=== PATIENT | female | born 1950 | race African-American/Black ===

== ENCOUNTER 2022-05-25 14:41 | Inpatient (IN) | payer MEDICARE ==
[~2022-05-25 14:41] MED LIST: Heparin 10,000 UNITS/ 10 ML VIAL ONE
[2022-05-25 15:50] LABS: #Eosinphils 0.1 thou/uL (0.0-0.7); #Lymphocytes 0.9 thou/uL (1.20-3.40); #Monocytes 0.5 thou/uL (0.11-0.59); #Neutrophils 4.8 thou/uL (1.40-6.50); %Basophils 0.3 % (0.0-1.0); %Eosinophils 1.8 % (0.0-10.0); %Lymphocytes 14.8 % (21.0-51.0); %Monocytes 8.3 % (0.0-10.0); %Neutrophils 74.9 % (42.0-75.0); Hemoglobin 10.8 g/dL (12.0-16.0); Mean Corpuscular HGB CONC 32.5 g/dL (32.0-36.0); Mean Corpuscular Hemoglobin 29.6 pg (27.0-31.0); Mean Platelet Volume 9.2 fL (7.4-10.4); Platelet Count 164 10x3/uL (130-400); RBC Distribution Width 12.7 % (11.5-14.5); Red Blood Cell (RBC) Count 3.66 mill/uL (4.20-5.40); White Blood Cell (WBC) Count 6.4 10x3/uL (4.8-10.8)
[2022-05-25 16:22] LABS: ALT (SGPT) Less than 7 U/L (8-55); AST (SGOT) 16 U/L (5-34); Albumin 3.4 g/dL (3.4-4.8); Alkaline Phosphatase 76 U/L (40-110); Anion Gap 19 mmol/L (10-20); BUN (Urea Nitrogen) 65 mg/dL (9.8-20.1); Bilirubin, Total 0.7 mg/dL (0.2-1.2); Calc. Creatinine Clearance 0 mL/min (70-130); Calcium 9.2 mg/dL (7.8-10.44); Carbon Dioxide 14 mmol/L (23-31); Chloride 108 mmol/L (98-107); Estimated GFR 4; Globulin 3.6 g/dL (2.4-3.5); Glucose 92 mg/dL (80-115); Potassium 5.1 mmol/L (3.5-5.1); Sodium 136 mmol/L (136-145)
[2022-05-25] MEDS ORDERED: Nitroglycerin 2% Ointment 1 INCH/1 GM Packet ONE (17:26)
[2022-05-25] MEDS ORDERED: hydrALAZINE 20 MG/ML VIAL ONE (17:30)
[2022-05-25] MEDS ORDERED: Ondansetron PF 4 MG/2 ML Vial IVP PRN (17:38)
[2022-05-25] MEDS ORDERED: Acetaminophen 325 MG TAB ONE (18:42)
[2022-05-25 18:47] LABS: Hep B Core Total Ab Non-Reactive (NonReactive); Hep B Core Total Index 0.14 S/CO (0-0.79)
[2022-05-25 18:48] LABS: HBSAB Concentration Less than 8.00 mIU/mL; Hep B Surf AB Non-Reactive (NonReactive)
[2022-05-25 18:49] LABS: Hep C IgG Ab Non-Reactive (NonReactive); Hep C Index 0.26 S/CO (0-0.79)
[2022-05-25] MEDS: Acetaminophen 325 MG TAB PO PRN (18:53)
[2022-05-25 19:46] LABS: HBSAg Index 0.33 S/CO (0-0.99); Hep B Surf Ag NonReactive S/CO (NonReactive)
[2022-05-26] MEDS: Acetaminophen 325 MG TAB PO PRN (01:18)
[2022-05-26] MEDS: Heparin 5,000 UNITS/ML VIAL SC SCH ×4 (01:19→20:42)
[2022-05-26 05:03] LABS: #Eosinphils 0.1 thou/uL (0.0-0.7); #Lymphocytes 0.8 thou/uL (1.20-3.40); #Monocytes 0.6 thou/uL (0.11-0.59); #Neutrophils 4.2 thou/uL (1.40-6.50); %Basophils 0.4 % (0.0-1.0); %Lymphocytes 14.2 % (21.0-51.0); %Monocytes 9.9 % (0.0-10.0); %Neutrophils 74.4 % (42.0-75.0); Hemoglobin 9.5 g/dL (12.0-16.0); Mean Corpuscular HGB CONC 33.4 g/dL (32.0-36.0); Mean Corpuscular Hemoglobin 30.1 pg (27.0-31.0); Mean Corpuscular Volume 90.2 fl (78.0-98.0); Platelet Count 140 10x3/uL (130-400); RBC Distribution Width 12.7 % (11.5-14.5); Red Blood Cell (RBC) Count 3.16 mill/uL (4.20-5.40); White Blood Cell (WBC) Count 5.7 10x3/uL (4.8-10.8)
[2022-05-26 05:16] LABS: Albumin 2.9 g/dL (3.4-4.8); Phosphorus 4.6 mg/dL (2.3-4.7)
[2022-05-26 05:22] LABS: Anion Gap 16 mmol/L (10-20); BUN (Urea Nitrogen) 42 mg/dL (9.8-20.1); Calc. Creatinine Clearance 8 mL/min (70-130); Calcium 8.6 mg/dL (7.8-10.44); Carbon Dioxide 19 mmol/L (23-31); Chloride 105 mmol/L (98-107); Estimated GFR 6; Glucose 82 mg/dL (80-115); Magnesium 1.7 mg/dL (1.6-2.6); Sodium 136 mmol/L (136-145)
[2022-05-26] MEDS ORDERED: Heparin 10,000 UNITS/ 10 ML VIAL ONE (08:57)
[2022-05-26] MEDS ORDERED: Hydrochlorothiazide 25 MG TAB PO SCH (09:00)
[2022-05-26] MEDS ORDERED: Non-Formulary Item 1 EACH (Hydrochlorothiazide [Hydrochlorothiazide] 50 MG Tablet) PO SCH (09:00)
[2022-05-26] MEDS ORDERED: Epoetin (ESRD) 20,000 UNITS/ML IVP SCH (09:30)
[2022-05-26] MEDS ORDERED: Tuberculin PPD 0.1 ML VIAL I-DERMAL SCH (09:30)
[2022-05-26] MEDS: Carvedilol 25 MG TAB PO SCH ×2 (09:57→20:42)
[2022-05-26] MEDS: Atorvastatin Calcium 40 MG TAB PO SCH (09:57)
[2022-05-26] MEDS: NIFEdipine XL 60 MG TAB PO SCH (16:54)
[2022-05-26] MEDS: EPOETIN ALFA-EPBX (ESRD) 10,000 UNIT/ML VIAL IVP SCH (16:55)
[2022-05-26] MEDS ORDERED: GUAIFENESIN SF SOLN 200 MG/10 ML UDCUP PO PRN (20:50)
[2022-05-26] MEDS: Benzonatate 100 MG CAP PO PRN (21:55)
[2022-05-27 04:43] LABS: #Basophils 0.1 thou/uL (0.0-0.2); #Lymphocytes 1.9 thou/uL (1.20-3.40); #Monocytes 0.8 thou/uL (0.11-0.59); #Neutrophils 3.2 thou/uL (1.40-6.50); %Basophils 0.9 % (0.0-1.0); %Eosinophils 0.7 % (0.0-10.0); %Lymphocytes 31.4 % (21.0-51.0); Hemoglobin 9.3 g/dL (12.0-16.0); Mean Corpuscular HGB CONC 33.3 g/dL (32.0-36.0); Mean Corpuscular Hemoglobin 30.1 pg (27.0-31.0); Mean Corpuscular Volume 90.4 fl (78.0-98.0); Mean Platelet Volume 9.1 fL (7.4-10.4); Platelet Count 122 10x3/uL (130-400); RBC Distribution Width 12.8 % (11.5-14.5); Red Blood Cell (RBC) Count 3.08 mill/uL (4.20-5.40)
[2022-05-27 05:04] LABS: ALT (SGPT) 7 U/L (8-55); AST (SGOT) 16 U/L (5-34); Albumin 2.4 g/dL (3.4-4.8); Alkaline Phosphatase 52 U/L (40-110); Anion Gap 11 mmol/L (10-20); BUN (Urea Nitrogen) 20 mg/dL (9.8-20.1); Bilirubin, Total 0.4 mg/dL (0.2-1.2); Calc. Creatinine Clearance 12 mL/min (70-130); Calcium 7.2 mg/dL (7.8-10.44); Carbon Dioxide 23 mmol/L (23-31); Chloride 107 mmol/L (98-107); Estimated GFR 9; Glucose 81 mg/dL (80-115); Magnesium 1.5 mg/dL (1.6-2.6); Phosphorus 3.7 mg/dL (2.3-4.7); Potassium 3.5 mmol/L (3.5-5.1); Protein, Total 5.4 g/dL (5.8-8.1); Sodium 137 mmol/L (136-145)
[2022-05-27] MEDS ORDERED: Magnesium 2 GM/50 ML(in water) 2 GM in Premix Bag 1 BAG IVPB SCH (09:45)
[2022-05-27] MEDS: Atorvastatin Calcium 40 MG TAB PO SCH (10:19)
[2022-05-27] MEDS: Heparin 5,000 UNITS/ML VIAL SC SCH ×3 (10:19→20:53)
[2022-05-27] MEDS: HYDROcodone/Acetaminophen 5/325 mg Tablet PO PRN (11:53)
[2022-05-27] MEDS: Carvedilol 25 MG TAB PO SCH ×2 (13:16→20:55)
[2022-05-27] MEDS: NIFEdipine XL 60 MG TAB PO SCH (13:16)
[2022-05-27] MEDS ORDERED: Loratadine 10 MG TAB PO SCH (13:30)
[2022-05-27] MEDS: Acetaminophen 325 MG TAB PO PRN (20:55)
[2022-05-28] MEDS: Acetaminophen 325 MG TAB PO PRN ×2 (03:54→18:32)
[2022-05-28 05:38] LABS: Anion Gap 17 mmol/L (10-20); BUN (Urea Nitrogen) 36 mg/dL (9.8-20.1); Calc. Creatinine Clearance 7 mL/min (70-130); Calcium 8.3 mg/dL (7.8-10.44); Carbon Dioxide 22 mmol/L (23-31); Chloride 98 mmol/L (98-107); Estimated GFR 5; Glucose 104 mg/dL (80-115); Magnesium 2.3 mg/dL (1.6-2.6); Phosphorus 5.9 mg/dL (2.3-4.7); Sodium 133 mmol/L (136-145)
[2022-05-28] MEDS ORDERED: Heparin 10,000 UNITS/ 10 ML VIAL ONE (09:03)
[2022-05-28] MEDS: Atorvastatin Calcium 40 MG TAB PO SCH (09:26)
[2022-05-28] MEDS: Heparin 5,000 UNITS/ML VIAL SC SCH ×3 (09:26→21:33)
[2022-05-28] MEDS: Carvedilol 25 MG TAB PO SCH ×2 (09:27→21:33)
[2022-05-28] MEDS: NIFEdipine XL 60 MG TAB PO SCH (09:27)
[2022-05-28] MEDS: EPOETIN ALFA-EPBX (ESRD) 10,000 UNIT/ML VIAL IVP SCH (12:06)
[2022-05-28] MEDS: HYDROcodone/Acetaminophen 5/325 mg Tablet PO PRN (14:32)
[2022-05-28] MEDS ORDERED: Activase 2 MG VIAL CATH SCH (17:00)
[2022-05-29] MEDS: HYDROcodone/Acetaminophen 5/325 mg Tablet PO PRN ×2 (03:28→15:46)
[2022-05-29] MEDS: NIFEdipine XL 60 MG TAB PO SCH (10:08)
[2022-05-29] MEDS: Atorvastatin Calcium 40 MG TAB PO SCH (10:08)
[2022-05-29] MEDS: Carvedilol 25 MG TAB PO SCH ×2 (10:08→21:55)
[2022-05-29] MEDS: Heparin 5,000 UNITS/ML VIAL SC SCH ×3 (10:09→21:55)
[2022-05-30 05:15] LABS: #Basophils 0.1 thou/uL (0.0-0.2); #Eosinphils 0.3 thou/uL (0.0-0.7); #Lymphocytes 2.6 thou/uL (1.20-3.40); #Monocytes 0.7 thou/uL (0.11-0.59); #Neutrophils 3.9 thou/uL (1.40-6.50); %Basophils 1.1 % (0.0-1.0); %Eosinophils 3.5 % (0.0-10.0); %Lymphocytes 34.9 % (21.0-51.0); %Monocytes 8.6 % (0.0-10.0); %Neutrophils 51.8 % (42.0-75.0); Hemoglobin 9.6 g/dL (12.0-16.0); Mean Corpuscular HGB CONC 32.7 g/dL (32.0-36.0); Mean Corpuscular Hemoglobin 30.6 pg (27.0-31.0); Mean Corpuscular Volume 93.5 fl (78.0-98.0); Mean Platelet Volume 8.5 fL (7.4-10.4); Platelet Count 178 10x3/uL (130-400); Red Blood Cell (RBC) Count 3.13 mill/uL (4.20-5.40); White Blood Cell (WBC) Count 7.5 10x3/uL (4.8-10.8)
[2022-05-30 06:16] LABS: Anion Gap 14 mmol/L (10-20); BUN (Urea Nitrogen) 26 mg/dL (9.8-20.1); Calc. Creatinine Clearance 8 mL/min (70-130); Calcium 8.3 mg/dL (7.8-10.44); Carbon Dioxide 25 mmol/L (23-31); Chloride 101 mmol/L (98-107); Estimated GFR 6; Glucose 72 mg/dL (80-115); Potassium 4.2 mmol/L (3.5-5.1); Sodium 136 mmol/L (136-145)
[2022-05-30] MEDS: HYDROcodone/Acetaminophen 5/325 mg Tablet PO PRN ×2 (09:07→19:45)
[2022-05-30] MEDS: Atorvastatin Calcium 40 MG TAB PO SCH (09:07)
[2022-05-30] MEDS: Carvedilol 25 MG TAB PO SCH ×2 (09:09→19:46)
[2022-05-30] MEDS: NIFEdipine XL 60 MG TAB PO SCH (09:09)
[2022-05-30] MEDS: Heparin 5,000 UNITS/ML VIAL SC SCH ×3 (09:11→19:44)
[2022-05-30] MEDS ORDERED: Bisacodyl 5 MG TAB PO PRN (20:07)
[2022-05-30] MEDS ORDERED: Senokot S 8.6-50 MG TAB PO PRN (20:07)
[2022-05-30] MEDS ORDERED: Polyethylene Glycol 3350 17 GM Packet PO SCH (20:15)
[2022-05-31 05:44] LABS: Anion Gap 15 mmol/L (10-20); BUN (Urea Nitrogen) 35 mg/dL (9.8-20.1); Calc. Creatinine Clearance 6 mL/min (70-130); Calcium 8.5 mg/dL (7.8-10.44); Carbon Dioxide 25 mmol/L (23-31); Chloride 98 mmol/L (98-107); Estimated GFR 4; Glucose 89 mg/dL (80-115); Potassium 4.7 mmol/L (3.5-5.1); Sodium 133 mmol/L (136-145)
[2022-05-31] MEDS: Heparin 5,000 UNITS/ML VIAL SC SCH ×3 (09:59→20:20)
[2022-05-31] MEDS ORDERED: Heparin 10,000 UNITS/ 10 ML VIAL ONE ×2 (10:06→10:55)
[2022-05-31] MEDS: Polyethylene Glycol 3350 17 GM Packet PO SCH (10:09)
[2022-05-31] MEDS ORDERED: Propofol 500 MG/50 ML VIAL ONE (10:43)
[2022-05-31] MEDS ORDERED: fentaNYL PF 100 MCG/2 ML SYRINGE ONE (10:43)
[2022-05-31] MEDS ORDERED: Bupivacaine HCl 0.5%/Epinephrine 1:200,000/PF 30 ml Vial ONE (10:55)
[2022-05-31] MEDS ORDERED: Protamine Sulfate 50 MG/5 ML VIAL ONE (10:55)
[2022-05-31] MEDS ORDERED: Heparin 5,000 UNITS/ML VIAL ONE (10:55)
[2022-05-31] MEDS ORDERED: Lidocaine 2% PF 5 ML VIAL ONE (10:55)
[2022-05-31] MEDS ORDERED: PROPOFOL 200 MG/20 ML VIAL ONE (12:24)
[2022-05-31] MEDS ORDERED: Ondansetron PF 4 MG/2 ML Vial ONE (12:24)
[2022-05-31] MEDS ORDERED: ePHEDrine 50 MG/ML VIAL ONE (12:24)
[2022-05-31] MEDS ORDERED: Lidocaine 1% PF 5 ML VIAL ONE (12:24)
[2022-05-31] MEDS ORDERED: Dexamethasone 20 MG/5 ML VIAL ONE (12:24)
[2022-05-31] MEDS ORDERED: Fentanyl 100 MCG/2 ML VIAL ONE (14:57)
[2022-05-31] MEDS: Atorvastatin Calcium 40 MG TAB PO SCH (15:37)
[2022-05-31] MEDS: Carvedilol 25 MG TAB PO SCH ×2 (15:38→20:20)
[2022-05-31] MEDS: NIFEdipine XL 60 MG TAB PO SCH (15:38)
[2022-05-31] MEDS: HYDROcodone/Acetaminophen 5/325 mg Tablet PO PRN (19:26)
[2022-05-31] MEDS: EPOETIN ALFA-EPBX (ESRD) 10,000 UNIT/ML VIAL IVP SCH (20:20)
[2022-05-31] MEDS ORDERED: Sterile Water 10 ML VIAL IVP SCH (21:15)
[2022-05-31] MEDS ORDERED: Activase 2 MG VIAL CATH SCH (21:15)
[2022-05-31] MEDS ORDERED: Acetaminophen 500 MG TAB PO SCH (22:15)
[2022-06-01] MEDS: HYDROcodone/Acetaminophen 5/325 mg Tablet PO PRN ×3 (01:31→20:50)
[2022-06-01 08:22] LABS: Anion Gap 17 mmol/L (10-20); BUN (Urea Nitrogen) 46 mg/dL (9.8-20.1); Calc. Creatinine Clearance 7 mL/min (70-130); Carbon Dioxide 19 mmol/L (23-31); Chloride 96 mmol/L (98-107); Estimated GFR 5; Glucose 241 mg/dL (80-115); Potassium 5.1 mmol/L (3.5-5.1); Sodium 127 mmol/L (136-145)
[2022-06-01] MEDS: Heparin 5,000 UNITS/ML VIAL SC SCH ×3 (08:47→20:52)
[2022-06-01] MEDS: Atorvastatin Calcium 40 MG TAB PO SCH (08:48)
[2022-06-01] MEDS: Polyethylene Glycol 3350 17 GM Packet PO SCH (08:48)
[2022-06-01] MEDS ORDERED: Heparin 10,000 UNITS/ 10 ML VIAL ONE (08:52)
[2022-06-01] MEDS: Carvedilol 25 MG TAB PO SCH (09:32)
[2022-06-01] MEDS: NIFEdipine XL 60 MG TAB PO SCH (09:32)
[2022-06-01] MEDS: Benzonatate 100 MG CAP PO PRN (20:50)
[2022-06-02] MEDS: Carvedilol 25 MG TAB PO SCH ×2 (01:09→09:13)
[2022-06-02 07:12] LABS: #Eosinphils 0.1 thou/uL (0.0-0.7); #Lymphocytes 3.1 thou/uL (1.20-3.40); #Neutrophils 6.5 thou/uL (1.40-6.50); %Basophils 0.2 % (0.0-1.0); %Eosinophils 0.7 % (0.0-10.0); %Neutrophils 61.1 % (42.0-75.0); Mean Corpuscular HGB CONC 32.4 g/dL (32.0-36.0); Mean Corpuscular Hemoglobin 30.5 pg (27.0-31.0); Mean Corpuscular Volume 93.9 fl (78.0-98.0); Mean Platelet Volume 8.2 fL (7.4-10.4); Platelet Count 170 10x3/uL (130-400); RBC Distribution Width 14.2 % (11.5-14.5); Red Blood Cell (RBC) Count 3.27 mill/uL (4.20-5.40); White Blood Cell (WBC) Count 10.7 10x3/uL (4.8-10.8)
[2022-06-02 07:34] LABS: Anion Gap 14 mmol/L (10-20); BUN (Urea Nitrogen) 15 mg/dL (9.8-20.1); Calc. Creatinine Clearance 12 mL/min (70-130); Calcium 8.5 mg/dL (7.8-10.44); Carbon Dioxide 26 mmol/L (23-31); Chloride 101 mmol/L (98-107); Estimated GFR 10; Glucose 80 mg/dL (80-115); Potassium 4.1 mmol/L (3.5-5.1); Sodium 137 mmol/L (136-145)
[2022-06-02] MEDS: Atorvastatin Calcium 40 MG TAB PO SCH (09:13)
[2022-06-02] MEDS: Heparin 5,000 UNITS/ML VIAL SC SCH (09:14)
[2022-06-02] MEDS: Polyethylene Glycol 3350 17 GM Packet PO SCH (09:14)
[2022-06-02] MEDS: NIFEdipine XL 60 MG TAB PO SCH (09:14)
[2022-06-02] MEDS: HYDROcodone/Acetaminophen 5/325 mg Tablet PO PRN (09:19)
[2022-06-02] MEDS: EPOETIN ALFA-EPBX (ESRD) 10,000 UNIT/ML VIAL IVP SCH (12:32)
[2022-06-02 15:23] VITALS: BP 102/63; TEMP 98.1
== END 2022-06-02 15:49 | disposition home or self-care (01) | DRG 673 ==
LOC: ERS 14:41 → ERHOLD 17:03 → 2NO 21:44 → T4-B 05-31 15:50
PROVIDERS: ADMIT Internal Medicine; ATTEND Hospitalist
PROC: 02HV33Z Insertion of Infusion Device into Superior Vena Cava, Percutaneous Approach (ICD-10-PCS; principal; 2022-05-25)
PROC: 5A1D70Z Performance of Urinary Filtration, Intermittent, Less than 6 Hours Per Day (ICD-10-PCS; 2022-05-25)
PROC: 8E0ZXY6 Isolation (ICD-10-PCS; 2022-05-25)
PROC: 03180ZD Bypass Left Brachial Artery to Upper Arm Vein, Open Approach (ICD-10-PCS; 2022-05-31)
PROC: 0JH63XZ Insertion of Tunneled Vascular Access Device into Chest Subcutaneous Tissue and Fascia, Percutaneous Approach (ICD-10-PCS; 2022-05-31)
PROC: 02HV33Z Insertion of Infusion Device into Superior Vena Cava, Percutaneous Approach (ICD-10-PCS; 2022-05-31)
PROC: B5181ZA Fluoroscopy of Superior Vena Cava using Low Osmolar Contrast, Guidance (ICD-10-PCS; 2022-05-31)
PROC: B548ZZA Ultrasonography of Superior Vena Cava, Guidance (ICD-10-PCS; 2022-05-31)
DX: I12.0 Hypertensive chronic kidney disease with stage 5 chronic kidney disease or end stage renal disease (principal); N18.6 End stage renal disease; U07.1 COVID-19; N17.9 Acute kidney failure, unspecified; E87.20 Acidosis, unspecified; N25.81 Secondary hyperparathyroidism of renal origin; I16.0 Hypertensive urgency; E78.00 Pure hypercholesterolemia, unspecified; D63.1 Anemia in chronic kidney disease; E88.09 Other disorders of plasma-protein metabolism, not elsewhere classified; Z20.822 Contact with and (suspected) exposure to COVID-19; E87.5 Hyperkalemia; Z90.49 Acquired absence of other specified parts of digestive tract
CPT/HCPCS: 36415; 36556; 71045; 76770; 80048; 80053; 82040; 82728; 83735; 83880; 83970; 84100; 84484; 85025; 86140; 86580; 86704; 90935; 93005; 93306; 93970; 96374; C1713; C1752; C1776; G0257; J0360; J1100; J1642; J1644; J2001; J2405; J2704; J2720; J2997; J3010; J3475; J3490; L8670; Q5105; U0003; U0005